=== PATIENT | male | born 1950 | race Caucasian/White ===

== ENCOUNTER → 2018-02-14 | Outpatient (CLI) | payer OTHER | LOC: HYPER 07:12 | DX: L97.822 Non-pressure chronic ulcer of other part of left lower leg with fat layer exposed (principal); T63.301A Toxic effect of unspecified spider venom, accidental (unintentional), initial encounter; K21.9 Gastro-esophageal reflux disease without esophagitis; F17.200 Nicotine dependence, unspecified, uncomplicated; Z86.12 Personal history of poliomyelitis; Z79.82 Long term (current) use of aspirin; Y92.89 Other specified places as the place of occurrence of the external cause ==

== ENCOUNTER 2018-02-27 12:16 | Inpatient (IN) | payer OTHER ==
[~2018-02-27] VITALS: Ht 182.9 cm; Wt 103.4 kg
--- NOTE | ~2018-02-27 | HC ---
[facility] [place] [address] [place] [address] CONSULTATION Name: EUGENIO NAYAK Room #: 459-P [facility] IN M.R.#: [id number] Admission: 02/27/18 Attend Phys: Sabino Cooper MD Discharge: 03/02/18 Date of : 54 Report #: [id number] THIS REPORT FOR: //name// CC: LORIE Cooper DATE OF SERVICE: 02/28/2018 CHIEF COMPLAINT: Cellulitis and ulceration of both lower extremities. HISTORY OF PRESENT ILLNESS: This is a 67-year-old male patient who was seen [facility] by Dr. Higgins yesterday. He is homeless and sometimes stays in a hotel. He states he was bitten by some rats. He has developed increasing pain, swelling and drainage from his lower extremities. I have been asked to see him with regard to ongoing wound care. PAST MEDICAL HISTORY: Prior history of polio, chronic lower extremity cellulitis. No history of diabetes or previous DVT. He has history of smoking. SOCIAL HISTORY: The patient smokes cigarettes, one-half pack per day for the last 41 years, drinks one beer per day. PAST MEDICAL HISTORY: Positive for hypertension, knee surgery, polymyositis, lower extremity edema, venous ulcerations, and history of rat bites. ALLERGIES: PENICILLIN. MEDICATIONS: Currently Listed are none. REVIEW OF SYSTEMS: CONSTITUTIONAL: The patient denies fever, chills or weight loss. NEUROLOGICAL: The patient denies focal weakness, numbness or tingling. EYES: The patient denies visual change, redness or drainage. ENT: The patient denies earache, nasal drainage or sore throat. CARDIOVASCULAR: The patient denies chest pain, palpitations or diaphoresis. PULMONARY: The patient denies cough or shortness of breath. GASTROINTESTINAL: The patient denies nausea, vomiting, diarrhea or abdominal pain. ORTHOPEDIC: The patient complains of pain, drainage and swelling of his lower extremities bilaterally. Other systems in a 14-point review of systems are negative. PHYSICAL EXAMINATION: VITAL SIGNS: Include pulse rate 66, respiration 16, blood pressure 146/88, temperature 98.3. GENERAL: Chronically ill-appearing male patient who appears in no distress. [facility] [address] [place] [address] CONSULTATION Name: EUGENIO NAYAK Room #: 459-P [facility] IN M.R.#: [id number] Admission: 02/27/18 Attend Phys: Sabino Cooper MD Discharge: 03/02/18 Date of : 54 Report #: [id number] HEENT: Head normocephalic. Nose and throat clear. NECK: Supple. LUNGS: Clear. HEART: ____. ABDOMEN: Soft. Bowel sounds present. EXTREMITIES: Lower extremities demonstrate multiple ulcerations with redness, drainage, swelling and tenderness throughout. CLINICAL IMPRESSION: 1. Multiple venous type ulceration to traumatic wounds to both lower extremities. 2. Venous stasis dermatitis. 3. Cellulitis, bilateral lower extremities. 4. Hypertension. RECOMMENDATIONS: At this point in time, we recommend topical wound care with topical gentamicin ointment, Xeroform gauze, Kerlix, Kenneth wrap, elevation, intravenous antibiotic therapy. Continue current medications. Aggressive nutritional support to maximize wound healing. I appreciate being asked to see him in consultation. <ELECTRONICALLY SIGNED> By: Salty Mae MD 03/07/18 0738 [id number] Salty Mae MD /nt
[2018-02-27 13:00] VITALS: BP 147/83
[2018-02-27 14:41] LABS: HEMATOCRIT 40.9 % (42.0-52.0); HEMOGLOBIN 13.7 gm/dL (14.0-18.0); MCH 29.5 pg (26.0-34.0); MCHC 33.4 g/dL (28.0-37.0); MCV 88.3 fL (80.0-100.0); RBC 4.64 mil/uL (4.50-6.00); RDW 16.1 % (10.5-14.5); WBC 7.7 thou/uL (4.0-11.0)
[2018-02-27 14:54] LABS: ALBUMIN 3.4 g/dL (3.4-5.0); CALCIUM 8.7 mg/dL (8.5-10.1); CREATININE 0.9 mg/dL (0.7-1.3); MAGNESIUM 2.1 mg/dL (1.8-2.4); POTASSIUM 4.1 mmol/L (3.5-5.1); TOTAL BILIRUBIN 0.5 mg/dL (<0.1-1.0); TOTAL PROTEIN 7.5 g/dL (6.4-8.2)
[2018-02-27 17:18] LABS: URINE BILIRUBIN NEGATIVE (Negative); URINE BLOOD 2+ (Negative); URINE CLARITY CLEAR; URINE COLOR YELLOW; URINE GLUCOSE-RANDOM* NEGATIVE (Negative); URINE KETONES NEGATIVE (Negative); URINE LEUKOCYTES-REFLEX NEGATIVE (Negative); URINE NITRITE-REFLEX NEGATIVE (Negative); URINE PROTEIN (DIPSTICK) NEGATIVE (Negative); URINE SPECIFIC GRAVITY >= 1.030 (1.005-1.035); URINE UROBILINOGEN 0.2 E.U./dl (0.2-1.0)
[2018-02-27 17:25] LABS: SQUAMOUS None Seen /LPF (0-3); URINE WBC-REFLEX None Seen /HPF (0-5)
[2018-02-27 17:26] LABS: BACTERIA-REFLEX None Seen /HPF (None Seen); CRYSTALS None Seen /LPF (None Seen); HYALINE CASTS 0-3 Few /LPF (None Seen); MUCUS 0-3 Light strn/LPF (None Seen); URINE RBC 3-10 Few /HPF (0-2)
[2018-02-27 21:25] VITALS: BP 162/77
[2018-02-28 05:28] VITALS: BP 139/87
[2018-02-28 07:41] VITALS: BP 159/75
[2018-02-28] MEDS ORDERED: PLAVIX 75 MG TA75 M1 PO (11:19)
[2018-02-28] MEDS ORDERED: CARVEDILOL12.5 MG PO (11:20)
[2018-02-28] MEDS ORDERED: ASPIR-TRIN325 MG PO (11:22)
[2018-02-28 15:26] VITALS: BP 146/88
[2018-02-28 19:13] VITALS: BP 150/85
[2018-03-01 03:00] LABS: HEMATOCRIT 36.1 % (42.0-52.0); HEMOGLOBIN 11.9 gm/dL (14.0-18.0); MCH 29.1 pg (26.0-34.0); MCHC 32.9 g/dL (28.0-37.0); MCV 88.3 fL (80.0-100.0); PLATELET COUNT 244 thou/uL (150-400); RBC 4.09 mil/uL (4.50-6.00); RDW 16.3 % (10.5-14.5); WBC 6.6 thou/uL (4.0-11.0)
[2018-03-01 03:02] LABS: CALCIUM 8.4 mg/dL (8.5-10.1); CREATININE 0.8 mg/dL (0.7-1.3); MAGNESIUM 2.1 mg/dL (1.8-2.4); POTASSIUM 4.3 mmol/L (3.5-5.1)
[2018-03-01 04:33] VITALS: BP 142/88
[2018-03-01 05:13] LABS: ABSOLUTE NEUTROPHILS 4.3 thou/uL (1.4-8.2); PLATELET ESTIMATE NORMAL
[2018-03-01 05:14] LABS: ANISOCYTOSIS 1+; POLYCHROMASIA OCCASIONAL; SCHISTOCYTES RARE
[2018-03-01 07:25] VITALS: BP 154/91
[2018-03-01 16:42] VITALS: BP 150/97
[2018-03-01 19:30] VITALS: BP 148/94
[2018-03-02 03:48] VITALS: BP 152/94
[2018-03-02 05:44] LABS: HEMATOCRIT 37.5 % (42.0-52.0); HEMOGLOBIN 12.1 gm/dL (14.0-18.0); MCH 28.8 pg (26.0-34.0); MCHC 32.2 g/dL (28.0-37.0); MCV 89.4 fL (80.0-100.0); RBC 4.2 mil/uL (4.50-6.00); RDW 15.9 % (10.5-14.5)
[2018-03-02 05:59] LABS: CALCIUM 8.6 mg/dL (8.5-10.1); CREATININE 0.8 mg/dL (0.7-1.3); POTASSIUM 4.4 mmol/L (3.5-5.1)
[2018-03-02 07:52] VITALS: BP 162/110
[2018-03-02] MEDS ORDERED: DOXYCYCLINE 10100 MG PO (13:36)
[2018-03-02 13:40] VITALS: BP 162/110
== END 2018-03-02 17:53 | disposition home or self-care (01) | DRG 593 ==
LOC: 4E 12:16 → 4W 12:46
PROVIDERS: Hospitalist; Internal Medicine
DX: L97.929 Non-pressure chronic ulcer of unspecified part of left lower leg with unspecified severity (principal); L03.116 Cellulitis of left lower limb; L03.115 Cellulitis of right lower limb; L97.919 Non-pressure chronic ulcer of unspecified part of right lower leg with unspecified severity; F17.210 Nicotine dependence, cigarettes, uncomplicated; I10 Essential (primary) hypertension; I77.1 Stricture of artery; I87.2 Venous insufficiency (chronic) (peripheral); Z71.6 Tobacco abuse counseling; Z59.0 Homelessness; Z86.12 Personal history of poliomyelitis; Z88.0 Allergy status to penicillin; Z82.49 Family history of ischemic heart disease and other diseases of the circulatory system; Z79.899 Other long term (current) drug therapy; Z23 Encounter for immunization
CPT/HCPCS: 10047

== ENCOUNTER → 2018-02-27 | Outpatient (CLI) | payer OTHER ==
[~2018-02-27] MED LIST: ASPIR-TRIN325 MG PO; CARVEDILOL12.5 MG PO; DOXYCYCLINE 10100 MG PO; PLAVIX 75 MG TA75 M1 PO
== END ==
LOC: HYPER 08:00
DX: L97.822 Non-pressure chronic ulcer of other part of left lower leg with fat layer exposed (principal); T63.331D Toxic effect of venom of brown recluse spider, accidental (unintentional), subsequent encounter; S80.811D Abrasion, right lower leg, subsequent encounter; Z86.12 Personal history of poliomyelitis; F17.200 Nicotine dependence, unspecified, uncomplicated; X58.XXXD Exposure to other specified factors, subsequent encounter

== ENCOUNTER → 2018-03-22 | Outpatient (CLI) | payer OTHER | LOC: HYPER 06:42 | DX: L97.822 Non-pressure chronic ulcer of other part of left lower leg with fat layer exposed (principal); S80.862D Insect bite (nonvenomous), left lower leg, subsequent encounter; S81.801D Unspecified open wound, right lower leg, subsequent encounter; S91.002A Unspecified open wound, left ankle, initial encounter; F17.200 Nicotine dependence, unspecified, uncomplicated; Z86.12 Personal history of poliomyelitis; W57.XXXD Bitten or stung by nonvenomous insect and other nonvenomous arthropods, subsequent encounter; X58.XXXD Exposure to other specified factors, subsequent encounter; X58.XXXA Exposure to other specified factors, initial encounter; Y93.89 Activity, other specified; Y92.89 Other specified places as the place of occurrence of the external cause; Y99.8 Other external cause status ==

== ENCOUNTER 2018-03-25 14:23 | Emergency (ER) | payer OTHER ==
[~2018-03-25] VITALS: Ht 182.9 cm; Wt 72.6 kg
[2018-03-25 15:31] VITALS: BP 193/99
== END 2018-03-25 15:33 | disposition home or self-care (01) ==
LOC: ER 14:23
DX: S80.812A Abrasion, left lower leg, initial encounter (principal); T69.9XXA Effect of reduced temperature, unspecified, initial encounter; F17.210 Nicotine dependence, cigarettes, uncomplicated; Z88.0 Allergy status to penicillin; X31.XXXA Exposure to excessive natural cold, initial encounter; X58.XXXA Exposure to other specified factors, initial encounter; Y92.89 Other specified places as the place of occurrence of the external cause; Y93.89 Activity, other specified; Y99.8 Other external cause status

== ENCOUNTER → 2018-07-04 | Outpatient (CLI) | payer OTHER | LOC: HYPER 04-03 14:32 | DX: L97.821 Non-pressure chronic ulcer of other part of left lower leg limited to breakdown of skin (principal); L97.811 Non-pressure chronic ulcer of other part of right lower leg limited to breakdown of skin; L84 Corns and callosities; R60.0 Localized edema; I87.2 Venous insufficiency (chronic) (peripheral); I89.0 Lymphedema, not elsewhere classified; K21.9 Gastro-esophageal reflux disease without esophagitis; F17.200 Nicotine dependence, unspecified, uncomplicated; Z86.12 Personal history of poliomyelitis ==

== ENCOUNTER → 2018-07-11 | Outpatient (CLI) | payer OTHER | LOC: HYPER 06:35 | DX: L97.812 Non-pressure chronic ulcer of other part of right lower leg with fat layer exposed (principal); L97.821 Non-pressure chronic ulcer of other part of left lower leg limited to breakdown of skin; L84 Corns and callosities; R60.0 Localized edema; I87.2 Venous insufficiency (chronic) (peripheral); I89.0 Lymphedema, not elsewhere classified; K21.9 Gastro-esophageal reflux disease without esophagitis; F17.200 Nicotine dependence, unspecified, uncomplicated; Z86.12 Personal history of poliomyelitis ==

== ENCOUNTER → 2018-07-25 | Outpatient (CLI) | payer OTHER | LOC: HYPER 06:59 | DX: L97.812 Non-pressure chronic ulcer of other part of right lower leg with fat layer exposed (principal); L97.821 Non-pressure chronic ulcer of other part of left lower leg limited to breakdown of skin; I87.2 Venous insufficiency (chronic) (peripheral); I89.0 Lymphedema, not elsewhere classified; L84 Corns and callosities; R60.0 Localized edema; F17.200 Nicotine dependence, unspecified, uncomplicated; Z86.12 Personal history of poliomyelitis ==

== ENCOUNTER → 2018-08-15 | Outpatient (CLI) | payer OTHER | LOC: HYPER 06:49 | DX: L97.812 Non-pressure chronic ulcer of other part of right lower leg with fat layer exposed (principal); L84 Corns and callosities; I89.0 Lymphedema, not elsewhere classified; I87.2 Venous insufficiency (chronic) (peripheral); R60.0 Localized edema; K21.9 Gastro-esophageal reflux disease without esophagitis; F17.200 Nicotine dependence, unspecified, uncomplicated; Z86.12 Personal history of poliomyelitis ==

== ENCOUNTER → 2018-09-11 | Outpatient (CLI) | payer OTHER | LOC: HYPER 06:35 | DX: L97.812 Non-pressure chronic ulcer of other part of right lower leg with fat layer exposed (principal); L97.821 Non-pressure chronic ulcer of other part of left lower leg limited to breakdown of skin; I87.2 Venous insufficiency (chronic) (peripheral); I89.0 Lymphedema, not elsewhere classified; L84 Corns and callosities; A80.9 Acute poliomyelitis, unspecified; R60.0 Localized edema; F17.200 Nicotine dependence, unspecified, uncomplicated; Z86.12 Personal history of poliomyelitis ==

== ENCOUNTER → 2018-10-02 | Outpatient (CLI) | payer OTHER ==
[~2018-10-02] MED LIST changes: +TRAMADOL 50 MG50 MG PO
== END ==
LOC: HYPER 06:30
DX: L97.812 Non-pressure chronic ulcer of other part of right lower leg with fat layer exposed (principal); L97.821 Non-pressure chronic ulcer of other part of left lower leg limited to breakdown of skin; I87.2 Venous insufficiency (chronic) (peripheral); I89.0 Lymphedema, not elsewhere classified; L84 Corns and callosities; A80.9 Acute poliomyelitis, unspecified; R60.0 Localized edema; F17.200 Nicotine dependence, unspecified, uncomplicated; Z86.12 Personal history of poliomyelitis

== ENCOUNTER 2018-10-03 23:38 | Emergency (ER) | payer OTHER ==
[~2018-10-03] VITALS: Ht 182.9 cm; Wt 104.3 kg
[~2018-10-03 23:38] MED LIST changes: -TRAMADOL 50 MG50 MG PO
[2018-10-03 23:40] VITALS: BP 148/112
--- NOTE | 2018-10-04 08:58 | EKG ---
[address] [place] [place] [address] ELECTROCARDIOGRAM REPORT Name: EUGENIO NAYAK [id number] ������������������ Admission: 10/03/18 ������������������ Attend Phys: Discharge: 10/04/18 ������������������ Date of : 54 Report #: [id number] ����������������������������������������������������������������� [id number] THIS REPORT FOR: //name// [facility] ED Test Date: 2018-10-03 Test Time: 23:52:53 Pat Name: EUGENIO NAYAK Department: Room: Gender: Cosmetic Sales Consultant: : 1950 Requested By: Justus Polk Order Number: [id number] MD: Vince Villafana Measurements Intervals Rachel Rate: 55 P: 46 MI: 190 QRS: 25 QRSD: 124 T: 68 QT: 480 QTc: 460 Interpretive Statements Sinus rhythm Nonspecific intraventricular conduction delay Nonspecific ST segment abnormality No previous ECG available for comparison Electronically Signed On 10-04-2018 8:58:15 CDT by Vince Villafana [email or web address] ��������������������������������������������� <ELECTRONICALLY SIGNED> ���������������������������������������� By: Vince Villafana MD, [facility] ��������������������������������������������� 10/04/18 0858 [id number] Vince Villafana MD, FACC /EPI
[2018-10-05] MEDS ORDERED: TRAMADOL 50 MG50 MG PO (19:02)
== END 2018-10-04 00:36 | disposition home or self-care (01) ==
LOC: ER 23:38
DX: R07.89 Other chest pain (principal); I10 Essential (primary) hypertension; I83.009 Varicose veins of unspecified lower extremity with ulcer of unspecified site; L97.918 Non-pressure chronic ulcer of unspecified part of right lower leg with other specified severity; L97.928 Non-pressure chronic ulcer of unspecified part of left lower leg with other specified severity; Z59.0 Homelessness; F17.210 Nicotine dependence, cigarettes, uncomplicated; Z79.82 Long term (current) use of aspirin; Z79.899 Other long term (current) drug therapy; Z98.890 Other specified postprocedural states

== ENCOUNTER 2018-10-05 16:51 | Emergency (ER) | payer OTHER ==
[2018-10-05] MEDS ORDERED: TRAMADOL 50 MG50 MG PO (19:02)
[2018-10-05 20:23] VITALS: BP 138/72
== END 2018-10-05 20:20 | disposition home or self-care (01) ==
LOC: ER 16:51
DX: S30.0XXA Contusion of lower back and pelvis, initial encounter (principal); S50.312A Abrasion of left elbow, initial encounter; G89.29 Other chronic pain; M54.5 Low back pain; L08.89 Other specified local infections of the skin and subcutaneous tissue; F17.210 Nicotine dependence, cigarettes, uncomplicated; Z79.82 Long term (current) use of aspirin; Z86.61 Personal history of infections of the central nervous system; Z79.899 Other long term (current) drug therapy; Z98.890 Other specified postprocedural states; W18.39XA Other fall on same level, initial encounter; Y93.89 Activity, other specified; Y92.89 Other specified places as the place of occurrence of the external cause; Y99.9 Unspecified external cause status